=== PATIENT | female | born 1950 | race Caucasian/White ===

== ENCOUNTER 2016-08-24 07:21 | Day surgery (SDC) | payer MEDICARE, MEDICAID ==
[~2016-08-24] VITALS: Ht 180.3 cm; Wt 95.5 kg
[2016-08-24] VITALS (9 sets, daily range): BP systolic 102–139; BP diastolic 48–95; PULSE 69–105; RESP 16–26; O2SAT 90–97
[~2016-08-24 07:21] MED LIST: ALBU8.5H2 INHALATION; CYCL5TAB PO; CeFAZolin Inj 2 GM in IV Premix 1 EACH IV ONE; DOCU-41 PO; GUAI400T57 PO; IBUP100T7 PO; LACT10SO27 PO; LANR90SY SQ; LEVO5TAB13 PO; LOSA25TA21 PO; Lactated Ringer's 1,000 ML IV SCH; MULT1CAP33 PO; OMEP20CA11 PO; PALI156D IM; PARO30TA75 PO; QUET300T PO
[2016-08-24] MEDS ORDERED: fentaNYL-PF 50 mCg/mL 2 mL Inj ONE (07:22)
[2016-08-24] MEDS ORDERED: Ketamine 10 mg/mL 20 mL Inj ONE (07:22)
--- NOTE | 2016-08-24 08:29 | PCM.HPANE ---
Patient Data Surgeon Admitting Provider: Attending Provider:Anjum Andrea MD Primary Care Physician:Cherelle Anderson PA-C Other Provider:Aspen Brantley Anesthesia Reason for Visit Umbilical Hernia Ht/WT & BMI Height (Feet): 5 Height (Inches): 11.00 Weight (Kilograms): 95.5 Body Mass Index 29.00 Allergies Coded Allergies: latex (Verified Allergy, Severe, Rash,Itching,, 05/07/16) erythromycin base (Verified Allergy, Unknown, 05/07/16) Past Anesthesia History Anesthesia History: Denies:: Abnormal Airway, Anesthesia Reactions, Difficult Intubation Diabetes History Hx Diabetes?: No Medications Hypertension Medication: Yes Home Meds Incl Beta Piedad: No Reported Medications Lanreotide Acetate (Somatuline Depot)90 Mg/0.3 Ml Rswdyvu41 Mg SQ q 4 weeks 03/13/16 Albuterol HFA (Proair HFA)8.5 Gm Hfa.aer.ad2 Puffs INHALATION Q4H #1 INHALER 03/13/16 Paroxetine (Paxil)30 Mg [place]52 Mg PO DAILY Ref 0 03/13/16 Omeprazole 20 Mg Capsule.dr20 Mg PO DAILY Ref 0 03/13/16 Multivitamin (Multivitamins)1 Each Capsule1 Each PO DAILY 03/13/16 Losartan Potassium 25 Mg Sfrkqx15 Mg PO DAILY 03/13/16 Levocetirizine Dihydrochloride 5 Mg Tablet5 Mg PO DAILY 03/13/16 Lactulose 10 Gm/15 Ml Xkdfgtud86 Gm PO DAILY 03/13/16 Paliperidone Palmitate Inj (Invega Sustenna)156 Mg/1 Ml Gegcrvz547 Mg IM monthly 03/13/16 Ibuprofen 100 Mg Kyhsex211 Mg PO q4-6hrs PRN For Pain Ref 0 03/13/16 Guaifenesin 400 Mg Rktofs458 Mg PO q6 30 Days 03/13/16 Docusate Sodium (Colace)100 Mg Jkjvels406 Mg PO HS PRN For Constipation Ref 0 03/13/16 Cyclobenzaprine 5 Mg Tablet5 Mg PO TID PRN Spasm 03/13/16 Quetiapine Fumarate (Seroquel)300 Mg Kdwawl041 Mg PO HS #30 TABLET Ref 0 11/06/14 History History of ENT Problems?: Yes HEENT History: Positive for:: Sinus Problem Denies:: Hearing Problem Hx of Heart Problems?: Yes Cardiovascular History: Positive for:: Hypertension Denies:: Chest Pain Congestive Heart Failure Hx of Respiratory Problem?: No Respiratory History: Positive for:: Use of Inhalers / NEBS (for acute bronchitis hx) Denies:: Asthma Oxygen Administration Tuberculosis Use of C-PAP Machine Hx Neurologic Problems?: No Neurological History: Denies:: CVA Headaches Multiple Sclerosis Parkinson's Disease Seizures Hx of GI Problems?: Yes Gastrointestinal History: Positive for:: Gastroesphageal Reflux Heartburn Rectal Bleeding Denies:: Hepatitis Other GI Pertinent History: umbilical hernia current admission problem Hx of Problems?: No Genitourinary History: Denies:: Kidney Stones Urinary Tract Infection (past hx of) Female Hx: Denies:: Currently (hysterectomy) Endometriosis Pelvic Inflammatory Problems with Breasts? Skin History: Denies:: History Skin Disorders? Pressure Ulcers Hx Musculoskeletal Problems?: No Musculoskeletal History: Positive for:: Musculoskeletal Trauma Denies:: Fibromyalgia Joint Replacement Hx of Psycho/Social Problems?: Yes Psycho Social History: Positive for:: Anxiety Bipolar Disorder Hx Depression Denies:: Suicide Attempt Hx Surgeries?: Yes (Tonsil, hyst, dental) Hx Any Other Health Problems?: Yes Other History: Positive for:: Endocrine Disease (pituitary microadenoma hx, acromegaly) Denies:: Cancer Thyroid Disease History Blood Transfusions: Denies:: Blood Transfusions Hx Diabetes: No Hx Alcohol Use: No (quit in 1998)Hx Substance Use: No Smoking Status: Current Every Day Smoker Stop/Bang Treated for Sleep Apnea?: No Do You Have a CPAP Machine?: No S-Snoring: Do You Snore Loudly: No T-Tired: feel tired, fatigued: No O-Obsered: Observed not breath: No P-Blood Pressure: treated: Yes B- Body Mass Index > 35 kg/m2: No A- Age over 50: Yes N- Neck Large Circumference: No G- Gender Male: No JAMMIE Total Score: 2 JAMMIE Risk Assessment: Low Risk, <3 Yes Risk Assessment Category Category 1A: Patient has history of documented sleep apnea, and HAS NOT received any narcotic, sedative or anesthesia administration during this stay. Category 1B: Patient has history of documented sleep apnea, and HAS received any narcotic , sedative or anesthesia administration during this stay Category 2: Patient has SUSPECTED Obstructive Sleep Apnea, and HAS received any narcotic , sedative or anesthesia administration during this stay. Category 3: Patient has SUSPECTED Obstructive Sleep Apnea and HAS NOT received narcotic, sedative or anesthesia administration during this stay. Category 4: Outpatient in Procedural Areas with known sleep apnea or who screen positive for High Risk via the STOP/BANG questionnaire. Exam Exam Vital Signs Vital Signs Date Time Temp Pulse Resp B/P Pulse Ox O2 Delivery O2 Flow Rate FiO2 08/24/16 07:49 36.8 69 26 102/86 95 Room Air General Appearance: Alert, Oriented X3, Cooperative, No Acute Distress HEENT/AIRWAY: MP 2 Lungs: Clear to Auscultation, Normal Air Movement Heart: Exam Unremarkable, Regular Rate/Rhythm, No Murmurs/Rubs/Gallops Plan Impression Patient chart reviewed, patient interviewed and anesthestic plan with risks, benefits, and alternatives discussed, and informed consent obtained. NPO Status: 08/23 at 1630 ASA Physical Status: ASA2 Mod Systemic Disease Anesthetic Plan: GA Bene/Risks/Altern/Consents: Yes HP Complete Prior to Induction: Yes Livan Marte MD Aug 24, 2016 08:29
[2016-08-24] MEDS ORDERED: Bupivacaine-MPF 0.5% 30 mL Inj INFILTRATE ONE (09:09)
[2016-08-24] MEDS ORDERED: Lactated Ringer's 1,000 ML IV SCH (09:34)
[2016-08-24] MEDS ORDERED: Lactated Ringer's 500 ML IV PRN (09:34)
[2016-08-24] MEDS ORDERED: Phenylephrine 10,000 mCg/mL Inj IVPUSH PRN (09:35)
[2016-08-24] MEDS ORDERED: fentaNYL-PF 50 mCg/mL 2 mL Inj IVPUSH PRN (09:35)
[2016-08-24] MEDS ORDERED: Dexamethasone 4 mg/mL Inj IVPUSH PRN (09:35)
[2016-08-24] MEDS ORDERED: Ondansetron 2 mg/mL 2 mL Inj IVPUSH PRN (09:35)
[2016-08-24] MEDS ORDERED: HYDROmorphone 1 mg/mL Inj IVPUSH PRN (09:35)
[2016-08-24] MEDS ORDERED: MetoCLOpramide 5 mg/mL 2 mL Inj IVPUSH PRN (09:35)
[2016-08-24] MEDS ORDERED: EPHEDrine Sulfate 50 mg/mL Inj IVPUSH PRN (09:35)
--- NOTE | 2016-08-24 10:14 | PCM.DISURG ---
Surgical Discharge Instruction Date of Service Aug 24, 2016 Dates of Hospitalization Date of Hospital Admission Providers Admitting Physician: Primary Care Physician: Cherelle AndersonC Attending Physician: Anjum Andrea MD Discharge Diagnosis Discharge Diagnosis Umbilical hernia Diet Discharge Diet: No restrictions Activity Discharge Activity-General: No lifting >10 pounds for 4-6 weeks Dressing and Incisional Care Dressing Care: Allow Steri Stripes to fall off, Remove outer dressing after 24 hrs Hygiene: May shower after (24 hours) Follow Up Plan Follow Up Plan In the general surgery [place] postoperative clinic in 2-3 weeks Call your provider for: Fever (over 101.5), Vomiting, Discharge @ incision, pus discharge Anjum Andrea MD Aug 24, 2016 10:14
[2016-08-24] MEDS ORDERED: HYDROcodone-APAP 5-325 mg Tablet PO PRN (10:15)
[2016-08-24] MEDS ORDERED: Ketorolac 15 mg/mL Inj IVPUSH PRN (10:15)
--- NOTE | 2016-08-24 10:17 | PCM.SURGOP ---
Surgical Operative Report Date of Service: Aug 24, 2016 Pre Operative Diagnosis Umbilical hernia Post Operative Diagnosis Same Procedure: Umbilical hernia repair with mesh Surgeon and Aws Consultant: Surgeon: Anjum Andrea MD Assistants: Luma Duke DO PGY-1 Indication for Procedure 66-year-old woman who has had an increasingly symptomatic umbilical hernia for the past 4 months. The hernia has been reducible. She has not had trouble with vomiting or bowel movements. After discussion of risks and benefits, she agreed to proceed with umbilical hernia repair with mesh. Findings: The fascial defect measured 1 cm, containing preperitoneal fat. A repair was performed using the medium Bard Ventralex mesh. Procedure Details After smooth induction of general anesthesia with an LMA, the patient was placed in the supine position with both arms out, and was prepped and draped in wide sterile fashion. A procedural pause was performed according to the SCOAP checklist, and all were found to be in agreement. A curvilinear infraumbilical incision was made. Dissection was carried down with electrocautery through the superficial subcutaneous tissue. The umbilical stalk was encircled with a hemostat. The umbilical stalk was disconnected using cautery. The hernia contents were from the umbilical stalk. The hernia sac was opened. The hernia contained incarcerated omental fat. This was reduced through the fascial defect. The fascia was skeletonized. The fascial defect measured 1.0 cm in diameter. By palpation, there were no other hernia defects, and no significant intra-abdominal adhesions. A repair was performed using the Bard Ventralex mesh, size medium. This was secured as an underlay using 0 Nurolon transfacial sutures circumferentially. The tails of the mesh were cut. The mesh was in good position. The fascia was closed over the mesh transversely using interrupted 0 Nurolon sutures. The umbilical stalk was resuspended to the fascia using an interrupted 3-0 Vicryl suture. The skin incision was closed with interrupted deep dermal 3-0 Vicryl sutures, and a running 4-0 Monocryl subcuticular stitch. Steri-Strips and sterile dressings were applied. At the end of the case all needle and sponge counts were correct 2. The patient was awakened from anesthesia without difficulty, and taken to the recovery room in satisfactory condition, having tolerated the procedure well. Complications There were no periprocedural complications identified. Surgical Specimen Removed: No Specimen sent to Pathology: Not applicable Anesthetic Plan: GA Grafts, Implants: Implants-See Implant Record Output, Estimated Blood Loss: 10 Blood Administration during viveros: No Drains: None Catheters: None copies to: Cherelle Anderson PA-C, Joshua D MD Aug 24, 2016 10:17
--- NOTE | 2016-08-24 10:43 | PCM.ANEP2 ---
Post Anesthesia Evaluation ASA/CMS Post Anesthesia VS in Patient's Normal Range?: Yes Resp Stable; Airway Patent?: Yes CV Function & Hydration Stable: Yes Mental Status Recovered?: Yes Pain control Satisfactory?: Yes N/V Control Satisfactory?: Yes Livan Marte MD Aug 24, 2016 10:43
--- NOTE | 2016-08-24 10:43 | PCM.ANEP1 ---
Post Anesthesia Phase 1 PACU Phase 1 Assessment Date of Service: Aug 24, 2016 Vital Signs Vital Signs Date Time Temp Pulse Resp B/P Pulse Ox O2 Delivery O2 Flow Rate FiO2 08/24/16 10:37 86 20 133/80 95 Simple Mask 10 08/24/16 10:20 88 20 130/83 97 Simple Mask 10 08/24/16 10:15 88 21 129/86 96 Simple Mask 10 08/24/16 10:12 36.8 81 24 127/90 90 Simple Mask 10 08/24/16 07:49 36.8 69 26 102/86 95 Room Air Anesthetic Administered: GA Level of Alertness: Awake, talking BOWDEN's with Equal Strength: Yes Pain: No Nausea or Vomiting: No Lungs: Clear to Auscultation, Normal Air Movement Dermatome Level: Full Sensation Livan Marte MD Aug 24, 2016 10:43
[2016-08-24] MEDS ORDERED: Lactated Ringer's 1,000 ML IV ONE (10:45)
== END 2016-08-24 23:59 | disposition home or self-care (01) ==
LOC: SAS 07:21
PROVIDERS: ATTEND Student in an Organized Health Care Education/Training Program
DX: K42.9 Umbilical hernia without obstruction or gangrene (principal); I10 Essential (primary) hypertension; K21.9 Gastro-esophageal reflux disease without esophagitis; R12 Heartburn; F41.9 Anxiety disorder, unspecified; F17.210 Nicotine dependence, cigarettes, uncomplicated; Z79.899 Other long term (current) drug therapy
CPT/HCPCS: 49585; C1781; J0690; J1885; J2250; J3010; J7120

== ENCOUNTER 2016-10-27 16:07 | Emergency (ER) | payer MEDICARE, MEDICAID ==
[~2016-10-27] VITALS: Ht 180.3 cm; Wt 96.8 kg
[~2016-10-27 16:07] MED LIST changes: -CeFAZolin Inj 2 GM in IV Premix 1 EACH IV ONE; -Lactated Ringer's 1,000 ML IV SCH
[2016-10-27 16:26] VITALS: BP 117/83; PULSE 59; RESP 20; O2SAT 97
[2016-10-27] MEDS ORDERED: 0.9% Sodium Chloride 1,000 ML IV ONE (16:34)
--- NOTE | 2016-10-27 16:34 | ED.REPORT ---
HPI-Trauma Minor / Fall Date of Service October 27, 2016 ED Provider: Jeffy Chapman MD Pt is a 66 y/o relatively healthy female presenting to the ED due to head injury secondary to ground level fall which occurred at 09:30 this morning. The patient was heading to the kitchen, felt dizzy after standing and turning quickly, and fell down and hit the back of her head. She denies any change in LOC or any other injuries, denies any CP. She also reports intermittent SOB for the past few months which occurs when she "tries to do something really fast", this is not a new symptom. The patient has been experiencing diarrheal illness for the past week and says that she feels dehydrated. No bright red blood per rectum, no melena, no lateralizing weakness, numbness, tingling. States that she feels safe at her assisted living facility. States that she rarely falls and is not worried about the level of assistance that she gets in the household. Nursing Notes Stated Complaint: HEAD INJURY Chief Complaint: Head, Face, Neck Trauma Nursing Notes Reviewed: Yes Allergies: Coded Allergies: latex (Verified Allergy, Severe, Rash,Itching,, 05/07/16) erythromycin base (Verified Allergy, Unknown, 05/07/16) Scheduled Albuterol HFA (Proair HFA) 8.5 Gm Hfa.aer.ad 2 PUFFS INHALATION Q4H Guaifenesin (Guaifenesin) 400 Mg Tablet 400 MG PO q6 Lactulose (Lactulose) 10 Gm/15 Ml Solution 10 GM PO DAILY Lanreotide Acetate (Somatuline Depot) 90 Mg/0.3 Ml Syringe 90 MG SQ q 4 weeks Levocetirizine Dihydrochloride (Levocetirizine Dihydrochloride) 5 Mg Tablet 5 MG PO DAILY Losartan Potassium (Losartan Potassium) 25 Mg Tablet 25 MG PO DAILY Multivitamin (Multivitamins) 1 Each Capsule 1 EACH PO DAILY Omeprazole (Omeprazole) 20 Mg Capsule.dr 20 MG PO DAILY Paliperidone Palmitate Inj (Invega Sustenna) 156 Mg/1 Ml Syringe 156 MG IM monthly Paroxetine (Paxil) 30 Mg Tablet 30 MG PO DAILY Quetiapine Fumarate (Seroquel) 300 Mg Tablet 300 MG PO HS Scheduled PRN Cyclobenzaprine (Cyclobenzaprine) 5 Mg Tablet 5 MG PO TID PRN PRN Spasm Docusate Sodium (Colace) 100 Mg Capsule 100 MG PO HS PRN PRN For Constipation Ibuprofen (Ibuprofen) 100 Mg Tablet 100 MG PO q4-6hrs PRN PRN For Pain Ondansetron ODT (Zofran ODT) 4 Mg Tablet 4 MG PO Q4H PRN PRN For Nausea General Time Seen by MD: 16:33 Chief Complaint Head injury Hx Obtained From: Patient Arrived By: Walk-in Onset Occurred: 5 - 8 hours ago Symptom Duration: 1 - 15 minutes Severity: Current: No pain currently Severity: Maximum: No pain Past Medical History Past Medical History Bipolar disorder Prolapsed uterus Acromegaly Pituitary tumor Resting tremor Past Surgical History Reports: Hysterectomy, Tonsillectomy Smoking History Current Every Day Smoker Social History Alcohol Use: Denies alcohol use Drug Use: Denies drug use Other Social History: Lives in rehab facility Ambulatory Status Independent Review of Systems Constitutional: Denies: Chills, Fever Respiratory: Reports: Shortness of breath Neurologic: Reports: Dizziness, Denies: Change LOC, Spinning sensation, Syncope Complete sys rev & neg: except as marked. Cardiovascular: Denies: Chest pain GI: Reports: Diarrhea, Denies: Abdominal pain, Nausea, Vomiting Physical Exam Initial Vital Signs Vital Signs (First) Date Time Temp Pulse Resp B/P Pulse Ox O2 Delivery O2 Flow Rate FiO2 10/27/16 16:26 36.6 59 20 117/83 97 Room Air Initial VS: Reviewed, Vital signs normal Head / Eyes: Atraumatic, Normocephalic, PERRL Respiratory: Breath sounds normal, Clear to auscultation, No respiratory distress Cardiovascular: Regular rate & rhythm, Heart sounds normal, Intact distal pulses Abdomen / GI: Soft, Non-tender, No guarding, No rebound, No distention Extremities: Vascular intact, Neuro intact, No swelling, No tenderness Skin: Warm, Dry, No cyanosis Psychiatric: Mood/affect normal, Behavior normal, Normal thought content General/Constitutional: Awake, Alert, No acute distress, Cooperative, Not toxic appearing Neck: Atraumatic, Supple, No meningismus, Full range of motion, Non-tender, No midline vertebral tend ENT: Atraumatic, Airway patent Mouth: Positive: Mucous membranes dry Neurologic: Oriented X3, Speech NL, No motor deficits, No sensory deficits, CN II - XII intact, Cerebellar NL, Memory NL Coarse resting tremor Interpretation & Diagnostics Lab Results Interpretation Result Diagram: 10/27/16 1650 10/27/16 1650 Test 10/27/16 16:50 White Blood Count 5.7th/mm3 (3.8-10.1) Red Blood Count 3.76mil/mm3 (3.90-5.20) Hemoglobin 12.0g/dL (12.0-15.6) Hematocrit 37.6% (35.0-46.0) Mean Corpuscular Volume 100.0fL (81-100) Mean Corpuscular Hemoglobin 31.9pg (27.0-35.0) Mean Corpuscular Hemoglobin Concent 31.9% (32.0-37.0) Red Cell Distribution Width 12.8% (12.3-15.4) Platelet Count 247bil/L (150-400) Neutrophils (%) (Auto) 57.9% (40-74) Lymphocytes (%) (Auto) 31.1% (14-46) Monocytes (%) (Auto) 6.7% (4-12) Eosinophils (%) (Auto) 3.7% (0-5) Basophils (%) (Auto) 0.4% (0-3) Prothrombin Time 10.4sec (8.1-12.5) Prothromb Time International Ratio 0.97ratio Sodium Level 138mEq/L (134-144) Potassium Level 3.9mEq/L (3.5-5.2) Chloride Level 102mEq/L (97-108) Carbon Dioxide Level 23mmol/L (18-29) Blood Urea Nitrogen 10mg/dL (8-27) Creatinine 0.63mg/dL (0.57-1.00) Estimat Glomerular Filtration Rate 135mL/min (>59) Glucose Level 94mg/dL (60-99) Calcium Level 10.8mg/dL (8.5-10.1) Total Bilirubin 0.2mg/dL (0.0-1.2) Aspartate Amino Transf (AST/SGOT) 15U/L (0-50) Alanine Aminotransferase (ALT/SGPT) 8U/L (0-32) Alkaline Phosphatase 84U/L (25-165) Total Protein 6.5g/dL (6.4-8.4) Albumin 3.6g/dL (3.4-5.0) ECG Interpretation ECG Interpretation: Poor baseline quality - artifact from resting tremor present Sinus rhythm rate 54 No prior available for comparison Time: 17:51 Interpreted by: ED physician X-Ray Chest Interpretation Chest Xray Interpretation: IMPRESSION: No acute pulmonary process. Dictated by: Lyndsay Felix M.D. on 10/27/2016 at 17:36 Approved by: Lyndsay Felix M.D. on 10/27/2016 at 17:37 View: Portable, 1 view Interpretation / Wet Read by: Interpret - Radiologist CT Head Interpretation IMPRESSION: 1. No acute intracranial process. 2. Mild atrophy and chronic microvascular ischemic changes. Dictated by: Lyndsay Felix M.D. on 10/27/2016 at 17:35 Approved by: Lyndsay Felix M.D. on 10/27/2016 at 17:36 Study: Head CT no contrast Interpretation / Wet Read by: Interpret - Radiologist Re-Eval/Medical Decision Med Decision/Clinical Course Pt is a 66 y/o relatively healthy female presenting to the ED due to head injury secondary to ground level fall which occurred at 09:30 this morning. The patient was heading to the kitchen, felt dizzy after standing and turning quickly, and fell down and hit the back of her head. She denies any change in LOC or any other injuries, denies any CP. She also reports intermittent SOB for the past few months which occurs when she "tries to do something really fast", this is not a new symptom. The patient has been experiencing diarrheal illness for the past week and says that she feels dehydrated. No bright red blood per rectum, no melena, no lateralizing weakness, numbness, tingling. States that she feels safe at her assisted living facility. States that she rarely falls and is not worried about the level of assistance that she gets in the household. Here in the emergency department the patient is afebrile with stable vital signs , neurologically intact without any evidence of significant trauma. Labs notable as below: CBC: Unremarkable CMP: Unremarkable Coag studies: Unremarkable CT head: 1. No acute intracranial process. 2. Mild atrophy and chronic microvascular ischemic changes. CXR: Obtained, reviewed and interpreted by myself shows no evidence of infiltrates, effusions or pneumothorax. Cardiac and mediastinal silhouette normal. No bony or soft tissue abnormalities. Overall presentation seems most consistent with presyncopal event related to orthostatic lightheadedness and volume depletion in the setting of dehydration. Here the patient was treated with Zofran for nausea and IV fluids. She reported complete symptom resolution. At this time, I see no evidence of pulmonary embolism, pneumonia, pneumothorax or other immediately concerning process. She denies any symptoms of urinary tract infection. I feel that she is appropriate for discharge back to her care facility. Prior to discharge follow-up and return precautions were reviewed in detail with the patient who verbalized understanding and agreement with the plan. The patient was discharged in stable condition. Re-Evaluation/Progress : Time of Eval: 17:50 Re-Evaluation/Progress Note: Pt rechecked. Informed pt of plan for treatment. Pt understands and agrees with plan for treatment. F/U instructions and RTER warnings given. All questions addressed. Counseled Regarding: Diagnosis, Lab results, Need for follow-up, When/why to return to ED Discharge & Departure Impression: Primary Impression: Dehydration Additional Impressions: Orthostatic lightheadedness Head trauma Encounter type: initial encounter Qualified Code: S09.90XA - Unspecified injury of head, initial encounter Disposition: Home Discharge Condition All VS Reviewed: Yes Condition: Stable Additional Instructions: Thank you for seeking care at the emergency room. It is difficult for us to make definitive diagnoses in the ED but we believe that you are experiencing dehydration. Our primary goal today in the ED was to evaluate you for any life-threatening conditions. Your evaluation was reassuring. You should follow-up with your primary doctor in the next week. You should drink plenty of fluids and be careful when standing up quickly. You should return to the ED immediately if you develop any new or worsening symptoms, fevers, vomiting, cough, shortness of breath, chest pain, lightheadedness, weakness or any other concerning signs or symptoms. Thank you for letting us partake in your care today. Referrals: Cherelle Anderson PA-C (PCP) Laurie Attestation Portions of this note were transcribed by Rudi Jackson. I, Dr. Chapman personally performed the history, physical exam and medical decision-making; I reviewed and confirmed the accuracy of the information in the transcribed note. Signed by Laurie Reynolds, 10/27/16 - [id number] copies to: Cherelle Anderson PA-CBardales O MD October 27, 2016 16:34 RUDI JACKSON October 27, 2016 16:36
[2016-10-27 17:11] LABS: BASOPHILS % (AUTO) 0.4 % (0-3); EOSINOPHILS % (AUTO) 3.7 % (0-5); MONOCYTES % (AUTO) 6.7 % (4-12); Mean Corpuscular Hemoglobin 31.9 pg (27.0-35.0); NEUTROPHILS % (AUTO) 57.9 % (40-74); Platelet Count 247 bil/L (150-400)
[2016-10-27 17:28] LABS: INR 0.97 ratio
--- NOTE | 2016-10-27 17:38 | DRSVH ---
PROCEDURE: X-RAY CHEST ONE VIEW, PORTABLE ([id number]) INDICATIONS: SHORTNESS OF BREATH TECHNIQUE: One view of the chest was acquired. COMPARISON: [facility], CR, XR CHEST 2VW, 12/09/2015, 8:42. [facility], CR , XR CHEST 2VW, 06/01/2015, 15:20. FINDINGS: Surgical changes and devices: None. Lungs and pleura: No pleural effusions or pneumothorax. Lungs are clear. Mediastinum: Mediastinal contours appear normal. Heart size is normal. Bones and chest wall: No suspicious bony lesions. Overlying soft tissues appear unremarkable. IMPRESSION: No acute pulmonary process. Dictated by: Lyndsay Felix M.D. on 10/27/2016 at 17:36 Approved by: Lyndsay Felix M.D. on 10/27/2016 at 17:37
--- NOTE | 2016-10-27 17:38 | DRSVH ---
PROCEDURE: CT BRAIN WITHOUT CONTRAST ([id number]) INDICATIONS: trauma TECHNIQUE: Noncontrast 4.5 mm thick angled axial sections acquired from the foramen magnum to the vertex, with c oronal reformats. COMPARISON: [facility], CT, CT BRAIN W&WO CON, 03/22/2015, 16:10. FINDINGS: Image quality: Excellent. CSF spaces: Basal cisterns are patent. No extra-axial fluid collections. The ventricles are symmet regina in size and shape. Brain: No intracranial bleeds or masses. There is cerebral volume loss for age, with resultant vent ricular and sulcal prominence. There are periventricular and deep white matter chronic small vessel ischemic changes. There is intracranial internal carotid artery atherosclerosis. Skull and face: Calvarium and visualized facial bones appear intact, without suspicious lesions. Sinuses: Visualized sinuses demonstrate minimal right maxillary sinus fluid. Scattered minimal ethmo id mucosal thickening is present. IMPRESSION: 1. No acute intracranial process. 2. Mild atrophy and chronic microvascular ischemic changes. Dictated by: Lyndsay Felix M.D. on 10/27/2016 at 17:35 Approved by: Lyndsay Felix M.D. on 10/27/2016 at 17:36
[2016-10-27 18:16] VITALS: BP 121/83; PULSE 54; RESP 18; O2SAT 97
[2016-10-27] MEDS ORDERED: ONDA4TAB9 PO (18:24)
[2016-10-27 18:29] VITALS: BP 121/83; PULSE 54; RESP 18; O2SAT 97
== END 2016-10-27 18:31 | disposition home or self-care (01) ==
LOC: SED 16:07
DX: S09.8XXA Other specified injuries of head, initial encounter (principal); S09.90XA Unspecified injury of head, initial encounter; Y93.89 Activity, other specified; Y92.120 Kitchen in nursing home as the place of occurrence of the external cause; Y99.8 Other external cause status; E86.0 Dehydration; R42 Dizziness and giddiness; R19.7 Diarrhea, unspecified; R06.02 Shortness of breath; F17.200 Nicotine dependence, unspecified, uncomplicated; Z88.1 Allergy status to other antibiotic agents; Z91.040 Latex allergy status
CPT/HCPCS: 36415; 70450; 71010; 80053; 81002; 85025; 85610; 93005; 96360; 99285; G0463; J7030